=== PATIENT | male | born 1990 | race Two or more races ===

== ENCOUNTER 2018-10-07 19:20 | Inpatient (IN) | payer SELFPAY ==
[~2018-10-07] VITALS: Ht 200.7 cm; Wt 79.7 kg
[2018-10-07 20:28] LABS: HEMATOCRIT 42.6 % (42.0-52.0); HEMOGLOBIN 15.2 g/dl (13.5-17.5); MEAN CORPUSCULAR HEMOGLOBIN 31.1 pg (27.0-33.0); MEAN CORPUSCULAR HGB CONC 35.7 g/dl (32.0-36.5); MEAN CORPUSCULAR VOLUME 87.1 fl (80.0-96.0); PLATELET COUNT, AUTOMATED 225 10^3/uL (150-450); RED BLOOD COUNT 4.89 10^6/uL (4.30-6.10); WHITE BLOOD COUNT 11.2 10^3/uL (4.0-10.0)
[2018-10-07 21:01] LABS: ACETAMINOPHEN LEVEL < 2.0 UG/ML (10.0-30.0); ALBUMIN 4.3 GM/DL (3.2-5.2); ALT/SGPT 30 U/L (12-78); BILIRUBIN,DIRECT 0.3 MG/DL (0.0-0.2); BLOOD UREA NITROGEN 11 MG/DL (7-18); CARBON DIOXIDE LEVEL 24 MEQ/L (21-32); CHLORIDE LEVEL 106 MEQ/L (98-107); CREATININE FOR GFR 0.85 MG/DL (0.70-1.30); ETHYL ALCOHOL (ETHANOL) < 0.003 % (0.000-0.010); GLOMERULAR FILTRATION RATE > 60.0 (>60); GLUCOSE, FASTING 85 MG/DL (70-100); POTASSIUM SERUM 3.9 MEQ/L (3.5-5.1); SALICYLATE LEVEL 3.8 MG/DL (5.0-30.0); SODIUM LEVEL 139 MEQ/L (136-145); TOTAL PROTEIN 7.2 GM/DL (6.4-8.2)
[2018-10-07 22:21] LABS: AMPHETAMINES LEVEL URINE NEGATIVE (NEGATIVE); BARBITURATES URINE NEGATIVE (NEGATIVE); BENZODIAZEPINES URINE NEGATIVE (NEGATIVE); CANNABINOIDS URINE POSITIVE (NEGATIVE); COCAINE METABOLITE URINE NEGATIVE (NEGATIVE); METHADONE URINE NEGATIVE (NEGATIVE); OPIATES URINE NEGATIVE (NEGATIVE); PHENCYCLIDINE URINE NEGATIVE (NEGATIVE)
[2018-10-08] MEDS ORDERED: ABIL1TAB11 PO (07:30)
[2018-10-08] MEDS ORDERED: ACETAMINOPHEN TAB 650MG DOSE (2X325MG) PO PRN (13:15)
[2018-10-08] MEDS ORDERED: MAALOX 30 ML SUSP *UDC PO PRN (13:15)
[2018-10-08] MEDS ORDERED: MOM 30ML SUSPENSION UDC PO PRN (13:15)
[2018-10-08] MEDS ORDERED: traZODone 50 MG TAB PO PRN (13:15)
[2018-10-08 14:07] VITALS: BP 142/95
[2018-10-08 18:00] VITALS: BP 130/83
[2018-10-09 06:43] VITALS: BP 112/70
[2018-10-09 09:44] LABS: HEMATOCRIT 40.1 % (42.0-52.0); HEMOGLOBIN 14.5 g/dl (13.5-17.5); MEAN CORPUSCULAR HEMOGLOBIN 31.3 pg (27.0-33.0); MEAN CORPUSCULAR HGB CONC 36.2 g/dl (32.0-36.5); MEAN CORPUSCULAR VOLUME 86.6 fl (80.0-96.0); PLATELET COUNT, AUTOMATED 220 10^3/uL (150-450); RED BLOOD COUNT 4.63 10^6/uL (4.30-6.10); WHITE BLOOD COUNT 8.3 10^3/uL (4.0-10.0)
--- NOTE | 2018-10-09 10:33 | HPE ---
DATE OF ADMISSION: 10/08/2018 HISTORY OF PRESENT ILLNESS: Please refer to the psychiatric history and evaluation for further details on this admission. This examination and history is intended for medical issues which may need treatment, followup or consultation on this 28-year-old male. PRIMARY CARE PROVIDER: Currently has none. ALLERGIES: No known drug allergies. SOCIAL HISTORY: He is single. ETOH - three to four times a week he drinks four to five shots of alcohol. Smokes one pack of cigarettes a day. Recreational drug use - marijuana very rarely. PAST MEDICAL HISTORY: Negative. PAST SURGICAL HISTORY: Repair right middle finger. HOME MEDICATIONS: Abilify one by mouth daily. FAMILY HISTORY: Noncontributory. LABORATORY STUDIES: CBC: White count 11.3, hemoglobin 33.2, hematocrit 42.6, platelets 225. Electrolytes are normal. BUN 11, creatinine 0.05. Urine was positive cannabinoids. REVIEW OF SYSTEMS: 10-systems review was done and was unremarkable. PHYSICAL EXAMINATION: 28-year-old cooperative male in no acute distress. Vital signs stable. Blood pressure 135/78, pulse 73, respirations 18, temperature 98.1, oxygen saturation 98% on room air. The patient is alert and oriented times three. Pupils equal and reactive to light. Extraocular movements intact. Cornea and sclera clear. Conjunctiva normal. No facial asymmetry. Pharynx, tongue, and gums pink and moist. Tongue is midline. Neck is supple, without lymphadenopathy. No thyromegaly. No goiter. Carotids 2+ without bruits. Chest clear to auscultation, without wheeze or retraction. Heart is regular. Abdomen benign. Bowel sounds positive. /Rectal: Not done. Extremities show equal strength. Full range of motion. no cyanosis, clubbing or edema. Peripheral pulses equal and palpable bilaterally. Skin is warm and dry. IMPRESSION AND PLAN: 1. Psychiatric: Plan per psychiatry. 2. Leukocytosis, asymptomatic, probably secondary to stress. Will repeat CBC in the morning. Will get a EKG. 3. No acute medical issues. edited: 10/11/2017 1431 tkf
--- NOTE | 2018-10-09 12:14 | MHHPEPDOC ---
General Date Of Admission: Oct 08, 2018 Legal Status: 9.39 Chief Complaint "I"m trying to get to [place]." History of Present Illness HISTORY OF THE PRESENT ILLNESS: Patient is a 28 -year-old Afghani, male, with a presumed history of schizophrenia (place on Abilify in [place] hosp 1wk ago;pt stopped) who was brought to ED by PD after pt present to [facility] after coming from [place] due to telling customs he would kill himself and needed to leave the country to find work. Pt appeared psychotic and to be hallucinating. In the ED pt stated he was "sick of people" and wanted to work in [place]. He appeared to be responding to internal stimuli, AH, and reported he had a "magic box" in his stomach. He also reported in the ED due to belief people are following him, putting words in his head and making him say them out loud so 'people' could record his words. Also stated they make him says words from the TV and radio. [facility] [place] [facility] [place] [facility] [place]. He is a [place] citizen with a permanent resident card. He was hospitalized 1 wk ago in [place] and was placed on Abilify that he hasn't taken since d/c. He denied SI/HI in ED. Psychiatric Review of Systems Depression (2 or more weeks): denies Lou (4 or more days of): grandiosity, distractibility, goal-directed activities Psychosis: auditory hallucination, delusions, paranoia, disorganization PTSD: denies Anxiety: situational anxiety, stressor related anxiety Anxiety/ 6 months or more of: restlessness, keyed up, difficulty concentrating Past Psychiatric History Previous Psychiatric Diagnosis: presumed to have paranoid schizophrenia Previous Psychiatric Admissions: [place] hospital 1 wk ago Suicide Attempts: unknown Psychiatric Follow-up: unknown, possibly in [place] Psychiatric medications: Abilify unknown dose, noncompliant Past Medical History Medical Problems none known Head Injury: No Seizures: No Hospitalizations: Yes Surgeries: Yes (rt middle finger repair) Family Medical/Psychiatric HX Medical Problems unable to assess Social History Childhood: unable to assess Abuse/Trauma:unable to assess Current Living Situation: in [place] with mother and brothers Education: unable to assess Employment: most likely unemployed as looking for work in [place] Social Support: family Legal: pending domestic charges Marital: unable to assess Mental Status Examination General Appearance: unkempt, disheveled, ds/not appear stated age (older), hospital scubs/clothing, other (malodorous) Build: average, tall Demeanor: preoccupied, guarded Eye Contact: fair Activity: anxious Behavior: cooperative, other (delusional, asking to leave) Speech: clear, normal volume, reg/rate,rhythm,volume, other (afghani accent) Mood: anxious Mood ok Affect: inappropriate, disorganized Thought Process: tangential, associative, flight of ideas, derailment Thought Content (Delusions): grandiose, bizarre, paranoia, delusions, other ("I have 3 people in my body") Thought Content (Other): preoccupied, guarded, internal-stimuli, appears paranoid Thought Content (Aggressive): none reported Perception (Hallucinations): auditory Perception (Other): none reported Cognition (Impairment of): attention/concentration, ability to abstract Cognition(Intelligence Est.): average Oriented: Awake, Alert, Oriented times three Insight: poor Judgment: Poor Psychosis: Associations, Abstract Thinking, Psychotic Perceptions Diagnoses Paranoid Schizophrenia Assessment Pt guarding, asking to by d/c today b/c he doesn't think he needs to be here b/c there's nothing wrong with him. Pt endorsing AH, having 3 people in his body that he doesn't know who they are, people "from [place], [place]... all after me," receiving messages from the TV "when you go up close the TV gives you answers, you have a question then you go to the TV for answers." Pt states he's been living in [place] with his mothers and brothers but doesn't want them called as doesn't think we need to speak with them b/c he called them last night and told them where he was. States that he'll sign consent for [place] hospital he was at stating "I was the doctor, for 1wk I was there, I was the doctor." Asked him 3 times if he meant he was seeing a doctor due to mild language barrier even though he speaks good Pashto and kept saying "no... I was the doctor." He is delusional, paranoid, psychotic with very poor insight and judgement. Denies SI/HI. Will start invega 3mg bid for psychosis with plan for invega sustenna for compliance prior d/c. Initial Treatment Plan 1. Patient was admitted on a 9.39 status. 2. Complete history was obtained. 3. With patients permission, family will be contacted and database will be expanded. 4. Patients medication regimen will be reviewed and changed accordingly. 5. Patient will be provided with protected environment. 6. Patient will be treated with individual, group, and milieu therapies. 7. Patient will receive supportive psych-education. 8. Discharge planning will commence immediately. 9. Outpatient follow-up treatment will be strongly recommended. 10. The initial treatment plan will focus initially on: * Depression. * Risk for suicide. * Substance abuse. 11. invega 3mg bid for psychosis, zyprexa zydis 10mg q6hr prn psychosis ESTIMATED LENGTH OF STAY: 7-9 DAYS. TIME SPENT COUNSELING AND COORDINATING INITIAL CARE: 60 minutes. Vital Signs Vital Signs Date Time Temp Pulse Resp B/P (MAP) Pulse Ox O2 Delivery O2 Flow Rate FiO2 10/09/18 06:43 97.7 75 16 112/70 (84) 10/08/18 13:50 99 10/08/18 03:26 Room Air Laboratory Data 24H Labs Laboratory Tests 2 10/09/18 09:15: Nucleated Red Blood Cells % (auto) 0.0 CBC/BMP Laboratory Tests 10/09/18 09:15 Red Blood Count 4.63, Mean Corpuscular Volume 86.6, Mean Corpuscular Hemoglobin 31.3, Mean Corpuscular Hemoglobin Concent 36.2, Red Cell Distribution Width 11.2 L Medications Scheduled Aripiprazole (Abilify) Unknown Strength Tab, 1 TAB PO DAILY, (Reported) PT STATES HAS NOT TAKEN IN A WEEK, WAS GIVEN TO HIM AT A HOSPITAL IN [place] Allergies Coded Allergies: No Known Allergies (Unverified , 10/08/18) MAGGIE FORD DO Oct 09, 2018 12:14
[2018-10-09] MEDS ORDERED: PALIPERIDONE 3 MG ER TAB (INVEGA) PO ONE (12:30)
[2018-10-09] MEDS: NICOTINE 21MG/24HR 1 EA TRANSDERMAL TD SCH (14:05)
[2018-10-09 18:44] VITALS: BP 129/84
[2018-10-09] MEDS: PALIPERIDONE 3 MG ER TAB (INVEGA) PO SCH (21:00)
[2018-10-10 06:10] VITALS: BP 119/60
[2018-10-10] MEDS: PALIPERIDONE 3 MG ER TAB (INVEGA) PO SCH ×2 (08:12→20:57)
[2018-10-10] MEDS: NICOTINE 21MG/24HR 1 EA TRANSDERMAL TD SCH (08:13)
--- NOTE | 2018-10-10 09:21 | MHIPNPDOC ---
[facility] Progress Note Progress Note DATE OF SERVICE: 10/10/18 HISTORY: Patient is a 28 -year-old Afani, male, with a presumed history of schizophrenia (place on Abilify in [place] hosp 1wk ago;pt stopped) who was brought to ED by PD after pt present to [facility] after coming from [place] due to telling customs he would kill himself and needed to leave the country to find work. Pt appeared psychotic and to be hallucinating. In the ED pt stated he was "sick of people" and wanted to work in [place]. He appeared to be responding to internal stimuli, AH, and reported he had a "magic box" in his stomach. He also reported in the ED due to belief people are following him, putting words in his head and making him say them out loud so 'people' could record his words. Also stated they make him says words from the TV and radio. Per ED, pt stopped at [facility] due to having pending domestic charges. [facility] with a permanent resident card. He was hospitalized 1 wk ago in [place] and was placed on Abilify that he hasn't taken since d/c. He denied SI/HI in ED. VITAL SIGNS: See below. NEW TEST RESULTS: See below. CURRENT MEDICATIONS: See below. MENTAL STATUS EXAMINATION: General Appearance: unkempt, disheveled, ds/not appear stated age (older), hospital scrubs/clothing, other (malodorous) Build: average, tall Demeanor: preoccupied, guarded Eye Contact: fair Activity: anxious Behavior: cooperative, other (delusional, asking to leave) Speech: clear, normal volume, reg/rate,rhythm,volume, other ([facility] accent) Mood: anxious Mood ok Affect: inappropriate, disorganized Thought Process: tangential, associative, flight of ideas, derailment Thought Content (Delusions): grandiose, bizarre, paranoia, delusions, other ("people chasing me with a magic box... 3 people inside me") Thought Content (Other): preoccupied, guarded, internal-stimuli, appears paranoid Thought Content (Aggressive): none reported Perception (Hallucinations): auditory Perception (Other): none reported Cognition (Impairment of): attention/concentration, ability to abstract Cognition(Intelligence Est.): average Oriented: Awake, Alert, Oriented times three Insight: poor Judgment: Poor Psychosis: Associations, Abstract Thinking, Psychotic Perceptions DIAGNOSES: 1. Paranoid Schizophrenia ASSESSMENT:Pt seen asking to leave. States he took his medication 2 times yesterday which is as directed but he thought it was a lot. States he recieved a monthly shot a long time ago that was beneficial but can't remember what it was. He is still delusional, paranoid, having thought insertion, appears to be responding to internal stimuli although cooperative with care. States ""people chasing me with a magic box... 3 people inside me" when asked about magic box and the 3 people inside him. Has no insight into his current delusional/paranoid thoughts. Pt agreeable to signing consents for family and previous hospital in [place]. He is delusional, paranoid, psychotic with very poor insight and judgement. Denies SI/HI. Feels safe here. MANAGEMENT PLAN: get records from previous hospital in [place] and speak with family for collateral info. Medications: invega 3mg bid for psychosis zyprexa zydis 10mg q6hr prn psychosis TIME SPENT: 30 minutes. Vital Signs Vital Signs Date Time Temp Pulse Resp B/P (MAP) Pulse Ox O2 Delivery O2 Flow Rate FiO2 10/10/18 06:10 97.0 114 18 119/60 (79) 10/08/18 13:50 99 10/08/18 03:26 Room Air Laboratory Data 24H Labs Laboratory Tests 2 10/09/18 09:15: Nucleated Red Blood Cells % (auto) 0.0 CBC/BMP Laboratory Tests 10/09/18 09:15 Red Blood Count 4.63, Mean Corpuscular Volume 86.6, Mean Corpuscular Hemoglobin 31.3, Mean Corpuscular Hemoglobin Concent 36.2, Red Cell Distribution Width 11.2 L Current Medications Current Medications Acetaminophen (Tylenol Tab) 650 mg Q6HP PRN PO HEADACHE or DISCOMFORT; Start 10/08/18 at 13:15 Al Hydrox/Mg Hydrox/Simethicone (Mylanta) 30 ml Q4HP PRN PO HEARTBURN/INDIGESTION; Start 10/08/18 at 13:15 Home Med (Med Rec Complete!) ASDIRECTED XX ; Start 10/08/18 at 07:45; Stop 10/08/18 at 07:45; Status DC Magnesium Hydroxide (Milk Of Magnesia) 30 ml DAILYPRN PRN PO CONSTIPATION; Start 10/08/18 at 13:15 Nicotine (Nicoderm Cq 21mg) 1 patch DAILY TD Last administered on 10/09/18at 14:05; Start 10/09/18 at 09:00 Olanzapine (ZyPREXA ZYDIS) 5 mg Q4HP PRN PO AGITATION; Start 10/08/18 at 13:15 Paliperidone (Invega) 3 mg QAM PO Last administered on 10/10/18at 08:12; Start 10/10/18 at 09:00 Paliperidone (Invega) 3 mg QHS PO ; Start 10/09/18 at 21:00 Trazodone HCl (Desyrel) 50 mg QHSP PRN PO INSOMNIA; Start 10/08/18 at 13:15 Allergies Coded Allergies: No Known Allergies (Unverified , 10/08/18) MAGGIE FORD DO Oct 10, 2018 9:21 am
--- NOTE | 2018-10-10 10:20 | ECGEPIP ---
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
[2018-10-10 18:00] VITALS: BP 140/78
[2018-10-11 06:00] VITALS: BP 142/70
[2018-10-11] MEDS: PALIPERIDONE 3 MG ER TAB (INVEGA) PO SCH (08:34)
[2018-10-11] MEDS: NICOTINE 21MG/24HR 1 EA TRANSDERMAL TD SCH ×2 (08:35→12:27)
--- NOTE | 2018-10-11 09:42 | MHIPNPDOC ---
[facility] Progress Note Progress Note DATE OF SERVICE: 10/11/18 HISTORY: Patient is a 28 -year-old Afani, male, with a presumed history of schizophrenia (place [place] Abilify in [place] hosp 1wk ago;pt stopped) who was brought to ED by PD after pt present to [facility] [place] coming [place] due to telling customs he would kill himself and needed to leave the country to find work. Pt appeared psychotic and to be hallucinating. In the ED pt stated he was "sick of people" and wanted to work in [place]. He appeared to be responding to internal stimuli, AH, and reported he had a "magic box" in his stomach. He also reported in the ED due to belief people are following him, putting words in his head and making him say them out loud so 'people' could record his words. Also stated they make him says words from the TV and radio. Per ED, pt stopped at [facility] due to having pending domestic charges. [facility]. [place] and was placed on Abilify that he hasn't taken since d/c. He denied SI/HI in ED. VITAL SIGNS: See below. NEW TEST RESULTS: See below. CURRENT MEDICATIONS: See below. MENTAL STATUS EXAMINATION: General Appearance: unkempt, disheveled, ds/not appear stated age (older), hospital scrubs/clothing, other (malodorous) Build: average, tall Demeanor: preoccupied, guarded Eye Contact: fair Activity: anxious Behavior: cooperative, other (delusional, asking to leave) Speech: clear, normal volume, reg/rate,rhythm,volume, other ([facility] accent) Mood: anxious Mood ok Affect: inappropriate, disorganized Thought Process: tangential, associative, flight of ideas, derailment Thought Content (Delusions): grandiose, bizarre, paranoia, delusions, other ("there's a ghost or evil speaking to me saying "yes... no... do this... don't do that", scared to be in single room b/c hears ghost more often) Thought Content (Other): preoccupied, guarded, internal-stimuli (as stated above, appears paranoid) Thought Content (Aggressive): none reported Perception (Hallucinations): auditory (as stated above, appears paranoid) Perception (Other): none reported Cognition (Impairment of): attention/concentration, ability to abstract Cognition(Intelligence Est.): average Oriented: Awake, Alert, Oriented times three Insight: poor Judgment: Poor Psychosis: Associations, Abstract Thinking, Psychotic Perceptions DIAGNOSES: 1. Paranoid Schizophrenia ASSESSMENT:Pt seen asking to leave. Per staff is compliant on medication. Per treatment team pt uneligible for any type of medical insurance so therefore unlikely to be able to afford invega or invega sustenna so will d/c and start haldol oral with plan for haldol dec prior d/c for psychosis and med compliance. Pt seen today stating that "there's a ghost or evil speaking to me saying "yes... no... do this... don't do that", scared to be in single room b/c hears ghost more often). Will change room to a double. He is still delusional, paranoid, having thought insertion, appears to be responding to internal stimuli although cooperative with care. Has no insight into his current delusional/paranoid thoughts. Pt agreeable to signing consents for family and previous hospital [place]. He is delusional, paranoid, psychotic with very poor insight and judgement. Denies SI/HI. Feels safe here. MANAGEMENT PLAN: get records from previous hospital in [place] and speak with family for collateral info. Change invega to haldol with plan for haldol dec prior d/c for compliance as pt lacks insurance due to be [place] citizen. change room to double to lessen AH at night. Medications: Haldol 10mg tid for psychosis zyprexa zydis 10mg q6hr prn psychosis TIME SPENT: 30 minutes. Vital Signs Vital Signs Date Time Temp Pulse Resp B/P (MAP) Pulse Ox O2 Delivery O2 Flow Rate FiO2 10/11/18 06:00 97.1 81 16 142/70 (94) 10/08/18 13:50 99 10/08/18 03:26 Room Air Current Medications Current Medications Acetaminophen (Tylenol Tab) 650 mg Q6HP PRN PO HEADACHE or DISCOMFORT; Start 10/08/18 at 13:15 Al Hydrox/Mg Hydrox/Simethicone (Mylanta) 30 ml Q4HP PRN PO HEARTBURN/INDIGESTION; Start 10/08/18 at 13:15 Home Med (Med Rec Complete!) ASDIRECTED XX ; Start 10/08/18 at 07:45; Stop 10/08/18 at 07:45; Status DC Magnesium Hydroxide (Milk Of Magnesia) 30 ml DAILYPRN PRN PO CONSTIPATION; Start 10/08/18 at 13:15 Nicotine (Nicoderm Cq 21mg) 1 patch DAILY TD Last administered on 10/09/18at 14:05; Start 10/09/18 at 09:00 Olanzapine (ZyPREXA ZYDIS) 5 mg Q4HP PRN PO AGITATION; Start 10/08/18 at 13:15 Paliperidone (Invega) 3 mg QAM PO Last administered on 10/11/18at 08:34; Start 10/10/18 at 09:00 Paliperidone (Invega) 3 mg QHS PO Last administered on 10/10/18at 20:57; Start 10/09/18 at 21:00 Trazodone HCl (Desyrel) 50 mg QHSP PRN PO INSOMNIA; Start 10/08/18 at 13:15 Allergies Coded Allergies: No Known Allergies (Unverified , 10/08/18) MAGGIE FORD DO Oct 11, 2018 9:42 am
[2018-10-11] MEDS ORDERED: HALOPERIDOL 10 MG TAB PO ONE (09:45)
[2018-10-11] MEDS: HALOPERIDOL 10 MG TAB PO SCH ×3 (16:00→21:03)
[2018-10-11 18:07] VITALS: BP 126/82
[2018-10-11] MEDS ORDERED: HALOPERIDOL 10 MG TAB PO SCH (21:00)
[2018-10-12] MEDS: HALOPERIDOL 10 MG TAB PO SCH ×3 (08:46→21:59)
[2018-10-12] MEDS: NICOTINE 21MG/24HR 1 EA TRANSDERMAL TD SCH (09:00)
[2018-10-12 10:08] VITALS: BP 145/87
--- NOTE | 2018-10-12 10:27 | MHIPNPDOC ---
[facility] Progress Note Progress Note DATE OF SERVICE: 10/12/18 HISTORY: Patient is a 28 -year-old Af[place], male, with a presumed history of schizophrenia (place on Abilify in [place] hosp 1wk ago;pt stopped) who was brought to ED by PD after pt present to [facility] after coming from [place] due to telling customs he would kill himself and needed to leave the country to find work. Pt appeared psychotic and to be hallucinating. In the ED pt stated he was "sick of people" and wanted to work in [place]. He appeared to be responding to internal stimuli, AH, and reported he had a "magic box" in his stomach. He also reported in the ED due to belief people are following him, putting words in his head and making him say them out loud so 'people' could record his words. Also stated they make him says words from the TV and radio. Per ED, pt stopped at [facility] due to having pending domestic charges. [facility]. He was hospitalized 1 wk ago in [place] and was placed on Abilify that he hasn't taken since d/c. He denied SI/HI in ED. VITAL SIGNS: See below. NEW TEST RESULTS: See below. CURRENT MEDICATIONS: See below. MENTAL STATUS EXAMINATION: General Appearance: unkempt, disheveled, ds/not appear stated age (older), hospital scrubs/clothing, other (malodorous) Build: average, tall Demeanor: preoccupied, guarded Eye Contact: fair Activity: anxious Behavior: cooperative, other (delusional, asking to leave) Speech: clear, normal volume, reg/rate,rhythm,volume, other ([facility] accent) Mood: anxious Mood ok Affect: inappropriate, disorganized Thought Process: tangential, associative, flight of ideas, derailment Thought Content (Delusions): grandiose, bizarre, paranoia, delusions, other ("there's a ghost or evil speaking to me saying "yes... no... do this... don't do that", scared to be in single room b/c hears ghost more often) Thought Content (Other): preoccupied, guarded, internal-stimuli (as stated above, appears paranoid) Thought Content (Aggressive): none reported Perception (Hallucinations): auditory (as stated above, appears paranoid) Perception (Other): none reported Cognition (Impairment of): attention/concentration, ability to abstract Cognition(Intelligence Est.): average Oriented: Awake, Alert, Oriented times three Insight: poor Judgment: Poor Psychosis: Associations, Abstract Thinking, Psychotic Perceptions DIAGNOSES: 1. Paranoid Schizophrenia ASSESSMENT:Pt seen asking to leave. Per staff is compliant on medication. On haldol oral with plan for haldol dec prior d/c for psychosis and med compliance as lacks med insurance. Pt states he's been hospitalized 15 times for 15-16 d ays in the last 4yrs so therefore doesn't need to be here as he's fine. He continues to pace the soto and appears to be responding to internal stimuli that he denies. Pt to experience what he stated yesterday "there's a ghost or evil speaking to me saying "yes... no... do this... don't do that." Pt not attending groups due to paranoia and AH as states he doesn't like to be around a lot of people. He is still delusional, paranoid, having thought insertion, appears to be responding to internal stimuli although cooperative with care. Has no insight into his current delusional/paranoid thoughts. Pt agreeable to signing consents for family and previous hospital in [place]. He is delusional, paranoid, psychotic with very poor insight and judgement. Denies SI/HI. Am get iPad contract consultant for pt as primary language is Farsi. Feels safe here. MANAGEMENT PLAN: get records from previous hospital in [place] and speak with family for collateral info. iPad contract consultant for [facility] Medications: Haldol 10mg tid for psychosis zyprexa zydis 10mg q6hr prn psychosis TIME SPENT: 30 minutes. Vital Signs Vital Signs Date Time Temp Pulse Resp B/P (MAP) Pulse Ox O2 Delivery O2 Flow Rate FiO2 10/12/18 10:08 97.6 95 16 145/87 (106) 10/08/18 13:50 99 10/08/18 03:26 Room Air Current Medications Current Medications Acetaminophen (Tylenol Tab) 650 mg Q6HP PRN PO HEADACHE or DISCOMFORT; Start 10/08/18 at 13:15 Al Hydrox/Mg Hydrox/Simethicone (Mylanta) 30 ml Q4HP PRN PO HEARTBURN/INDIGESTION; Start 10/08/18 at 13:15 Haloperidol (Haldol) 10 mg BID PO ; Start 10/11/18 at 21:00; Status UNV Haloperidol (Haldol) 10 mg TID PO Last administered on 10/12/18at 08:46; Start 10/11/18 at 16:00 Home Med (Med Rec Complete!) ASDIRECTED XX ; Start 10/08/18 at 07:45; Stop 10/08/18 at 07:45; Status DC Magnesium Hydroxide (Milk Of Magnesia) 30 ml DAILYPRN PRN PO CONSTIPATION; Start 10/08/18 at 13:15 Nicotine (Nicoderm Cq 21mg) 1 patch DAILY TD Last administered on 10/11/18at 12:27; Start 10/09/18 at 09:00 Olanzapine (ZyPREXA ZYDIS) 5 mg Q4HP PRN PO AGITATION; Start 10/08/18 at 13:15 Paliperidone (Invega) 3 mg QAM PO Last administered on 10/11/18at 08:34; Start 10/10/18 at 09:00; Stop 10/11/18 at 09:12; Status DC Paliperidone (Invega) 3 mg QHS PO Last administered on 10/10/18at 20:57; Start 10/09/18 at 21:00; Stop 10/11/18 at 09:12; Status DC Trazodone HCl (Desyrel) 50 mg QHSP PRN PO INSOMNIA; Start 10/08/18 at 13:15; Stop 10/11/18 at 09:38; Status DC Allergies Coded Allergies: No Known Allergies (Unverified , 10/08/18) MAGGIE FORD DO Oct 12, 2018 10:27 am
[2018-10-12] MEDS: OLANZapine ORAL DISINTEGRATING TAB 5MG PO PRN ×2 (12:59→22:25)
[2018-10-12 18:00] VITALS: BP 128/74
[2018-10-13 06:47] VITALS: BP 125/71
[2018-10-13] MEDS: HALOPERIDOL 10 MG TAB PO SCH ×3 (08:04→20:19)
[2018-10-13] MEDS: NICOTINE 21MG/24HR 1 EA TRANSDERMAL TD SCH (08:04)
--- NOTE | 2018-10-13 10:59 | MHIPNPDOC ---
[facility] Progress Note Progress Note DATE OF SERVICE: 10/13/18 HISTORY: Patient is a 28 -year-old Af[place], male, with a presumed history of schizophrenia (place on Abilify in [place] hosp 1wk ago;pt stopped) who was brought t o ED by PD after pt present to [facility] after coming from [place] due to telling customs he would kill himself and needed to leave the country to find work. Pt appeared psychotic and to be hallucinating. In the ED pt stated he was "sick of people" and wanted to work in [place]. He appeared to be responding to internal stimuli, AH, and reported he had a "magic box" in his stomach. He also reported in the ED due to belief people are following him, putting words in his head and making him say them out loud so 'people' could record his words. Also stated they make him says words from the TV and radio. Per ED, [place] border [place] domestic charges. He is a [place] [place] citizen with a permanent resident card. He was hospitalized 1 wk ago in [place] and was placed on Abilify that he hasn't taken since d/c. He denied SI/HI in ED. VITAL SIGNS: See below. NEW TEST RESULTS: See below. CURRENT MEDICATIONS: See below. MENTAL STATUS EXAMINATION: General Appearance: unkempt, disheveled, ds/not appear stated age (older), hospital scrubs/clothing, other (malodorous) Build: average, tall Demeanor: preoccupied, guarded Eye Contact: fair Activity: anxious Behavior: cooperative, other (delusional, asking to leave) Speech: clear, normal volume, reg/rate,rhythm,volume, other (formerly [facility] accent) Mood: anxious Mood ok Affect: inappropriate, disorganized Thought Process: tangential, associative, flight of ideas, derailment Thought Content (Delusions): grandiose, bizarre, paranoia, delusions, other ("t here's a ghost or evil speaking to me saying "yes... no... do this... don't do that", scared to be in single room b/c hears ghost more often) Thought Content (Other): preoccupied, guarded, internal-stimuli (as stated above, appears paranoid) Thought Content (Aggressive): none reported Perception (Hallucinations): auditory (as stated above, appears paranoid) Perception (Other): none reported Cognition (Impairment of): attention/concentration, ability to abstract Cognition(Intelligence Est.): average Oriented: Awake, Alert, Oriented times three Insight: poor Judgment: Poor Psychosis: Associations, Abstract Thinking, Psychotic Perceptions DIAGNOSES: 1. Paranoid Schizophrenia ASSESSMENT:Per d/c space planner, spoke with pt's mother who states pt sounds better when she speaks to him on the phone and was on a monthly shot a long time ago and doing well until he stopped taking it. Per pt's mother, they will not pick pt up so he must drive home to [place] on his own [place] border. Pt seen asking to leave. Per staff is compliant on medication. On haldol oral with plan for haldol dec prior d/c for psychosis and med compliance as lacks med insurance. Pt states he's tolerating his meds well and thinks they're help. He appears to have improved response to Ah. He continues to pace the soto occasionally. States "yesterday I had pressure behind my eyes and the evil spirits left thru my eyes." When speaking he speaks of "us" rather than "I" regarding questions about himself. Pt not attending groups due to p aranoia and AH as states he doesn't like to be around a lot of people. He is still delusional, paranoid, having thought insertion, appears to be responding to internal stimuli although cooperative with care. Has no insight into his current delusional/paranoid thoughts. He is showing minor improved delusional, paranoid, psychotic with very poor insight and judgement. Denies SI/HI. Feels safe here. MANAGEMENT PLAN: get records from previous hospital in [place] and speak with family for collateral info. 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 Vital Signs Vital Signs Date Time Temp Pulse Resp B/P (MAP) Pulse Ox O2 Delivery O2 Flow Rate FiO2 10/13/18 06:47 97.2 83 12 125/71 (89) 10/08/18 13:50 99 10/08/18 03:26 Room Air Current Medications Current Medications Acetaminophen (Tylenol Tab) 650 mg Q6HP PRN PO HEADACHE or DISCOMFORT; Start 10/08/18 at 13:15 Al Hydrox/Mg Hydrox/Simethicone (Mylanta) 30 ml Q4HP PRN PO HEARTBURN/INDIGESTION; Start 10/08/18 at 13:15 Haloperidol (Haldol) 10 mg BID PO ; Start 10/11/18 at 21:00; Status UNV Haloperidol (Haldol) 10 mg TID PO Last administered on 10/13/18at 08:04; Start 10/11/18 at 16:00 Home Med (Med Rec Complete!) ASDIRECTED XX ; Start 10/08/18 at 07:45; Stop 10/08/18 at 07:45; Status DC Magnesium Hydroxide (Milk Of Magnesia) 30 ml DAILYPRN PRN PO CONSTIPATION; Start 10/08/18 at 13:15 Nicotine (Nicoderm Cq 21mg) 1 patch DAILY TD Last administered on 10/11/18at 12:27; Start 10/09/18 at 09:00 Olanzapine (ZyPREXA ZYDIS) 5 mg Q4HP PRN PO AGITATION Last administered on 10/12/18at 22:25; Start 10/08/18 at 13:15 Paliperidone (Invega) 3 mg QAM PO Last administered on 10/11/18at 08:34; Start 10/10/18 at 09:00; Stop 10/11/18 at 09:12; Status DC Paliperidone (Invega) 3 mg QHS PO Last administered on 10/10/18at 20:57; Start 10/09/18 at 21:00; Stop 10/11/18 at 09:12; Status DC Trazodone HCl (Desyrel) 50 mg QHSP PRN PO INSOMNIA; Start 10/08/18 at 13:15; Stop 10/11/18 at 09:38; Status DC Allergies Coded Allergies: No Known Allergies (Unverified , 10/08/18) MAGGIE FORD DO Oct 13, 2018 10:59 am
[2018-10-13 18:42] VITALS: BP 117/69
[2018-10-13] MEDS ORDERED: traZODone 50 MG TAB PO PRN (21:30)
[2018-10-14 06:25] VITALS: BP 113/56
[2018-10-14] MEDS: HALOPERIDOL 10 MG TAB PO SCH ×3 (08:16→21:03)
[2018-10-14] MEDS: NICOTINE 21MG/24HR 1 EA TRANSDERMAL TD SCH (09:00)
[2018-10-14] MEDS: OLANZapine ORAL DISINTEGRATING TAB 5MG PO PRN ×2 (11:14→22:39)
[2018-10-14] MEDS: NICOTINE POLACRILEX 2 MG GUM PO PRN ×4 (12:09→21:21)
[2018-10-14 18:00] VITALS: BP 121/73
[2018-10-15 06:08] VITALS: BP 129/64
[2018-10-15] MEDS: NICOTINE POLACRILEX 2 MG GUM PO PRN ×4 (09:02→21:22)
[2018-10-15] MEDS: HALOPERIDOL 10 MG TAB PO SCH ×3 (09:02→21:22)
[2018-10-15] MEDS ORDERED: HALOPERIDOL DECANOATE 100 MG/ML VIAL (J1631) IM ONE (11:15)
--- NOTE | 2018-10-15 11:20 | MHIPNPDOC ---
[facility] Progress Note Progress Note DATE OF SERVICE: 10/15/18 HISTORY: Patient is a 28 -year-old Af[place], male, with a presumed history of schizophrenia (place on Abilify in [place] hosp 1wk ago;pt stopped) who was brought to ED by PD after pt present to [facility] after coming from [place] due to telling customs he would kill himself and needed to leave the country to find work. Pt appeared psychotic and to be hallucinating. In the ED pt stated he was "sick of people" and wanted to work in [place]. He appeared to be responding to internal stimuli, AH, and reported he had a "magic box" in his stomach. He also reported in the ED due to belief people are following him, putting words in his head and making him say them out loud so 'people' could record his words. Also stated they make him says words from the TV and radio. Per ED, pt stopped at [facility] due to having pending domestic charges. [place] a [place] resident card. He was hospitalized 1 wk ago in [place] and was placed on Abilify that he hasn't taken since d/c. He denied SI/HI in ED. VITAL SIGNS: See below. NEW TEST RESULTS: See below. CURRENT MEDICATIONS: See below. MENTAL STATUS EXAMINATION: General Appearance: clean, ds/not appear stated age (older), hospital scrubs/clothing Build: average, tall Demeanor: cooperative, calm Eye Contact: fair Activity: calm, no longer pacing halls all day Behavior: cooperative Speech: clear, normal volume, reg/rate,rhythm,volume, other (formerly [facility] accent) Mood: calm, flat Mood ok Affect: appropriate, flat Thought Process: improved tangential, associative, flight of ideas, derailment Thought Content (Delusions): improved grandiose, bizarre, paranoia, delusions, other Thought Content (Other): improved preoccupied, guarded, internal-stimuli Thought Content (Aggressive): none reported Perception (Hallucinations): improved auditory Perception (Other): none reported Cognition (Impairment of): attention/concentration, ability to abstract Cognition(Intelligence Est.): average Oriented: Awake, Alert, Oriented times three Insight: limited Judgment: limited Psychosis: Associations, Abstract Thinking, Psychotic Perceptions DIAGNOSES: 1. Paranoid Schizophrenia ASSESSMENT:Yesterday pt became agitated kicking over a fan in the soto, yelling and hitting the castro due to not being discharged. Pt did not need to be coded as he calmed down with redirection and possibly knowledge on Thursday d/c after haldol decanoate given today which he agrees too. Pt seen asking and states he's ok and appears calm. Per staff is compliant on medication. On haldol oral with plan for haldol dec prior d/c for psychosis and med compliance as lacks med insurance today. Pt states he's tolerating his meds well and thinks they're help. He appears to have improved psychosis and AH and is able to think more linear and logcial. He no longer paces the halls all day. He does speak with his peers in the milieu. He shows improved delusional, paranoid, having thought insertion, appears to be responding to internal stimuli although cooperative with care. Has some insight into his current delusional/paranoid thoughts. Denies SI/HI. Feels safe here. MANAGEMENT PLAN: get records from previous hospital in [place] and speak with family for collateral info. 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 Haldol decanoate for compliance today. Medications: Haldol decanoate 100mg im today Haldol 10mg tid for psychosis zyprexa zydis 10mg q6hr prn psychosis TIME SPENT: 30 minutes. Vital Signs Vital Signs Date Time Temp Pulse Resp B/P (MAP) Pulse Ox O2 Delivery O2 Flow Rate FiO2 10/15/18 06:08 98.5 70 18 129/64 (85) Current Medications Current Medications Acetaminophen (Tylenol Tab) 650 mg Q6HP PRN PO HEADACHE or DISCOMFORT; Start 10/08/18 at 13:15 Al Hydrox/Mg Hydrox/Simethicone (Mylanta) 30 ml Q4HP PRN PO HEARTBURN/INDIGESTION; Start 10/08/18 at 13:15 Haloperidol (Haldol) 10 mg BID PO ; Start 10/11/18 at 21:00; Status UNV Haloperidol (Haldol) 10 mg TID PO Last administered on 10/15/18at 09:02; Start 10/11/18 at 16:00 Home Med (Med Rec Complete!) ASDIRECTED XX ; Start 10/08/18 at 07:45; Stop 10/08/18 at 07:45; Status DC Magnesium Hydroxide (Milk Of Magnesia) 30 ml DAILYPRN PRN PO CONSTIPATION; Start 10/08/18 at 13:15 Nicotine (Nicoderm Cq 21mg) 1 patch DAILY TD Last administered on 10/11/18at 12:27; Start 10/09/18 at 09:00; Stop 10/14/18 at 11:37; Status DC Nicotine (Nicorette) 2 mg Q2HP PRN PO NICOTINE WITHDRAWAL Last administered on 10/15/18at 09:02; Start 10/14/18 at 11:45 Olanzapine (ZyPREXA ZYDIS) 5 mg Q4HP PRN PO AGITATION Last administered on 10/14/18at 22:39; Start 10/08/18 at 13:15 Paliperidone (Invega) 3 mg QAM PO Last administered on 10/11/18at 08:34; Start 10/10/18 at 09:00; Stop 10/11/18 at 09:12; Status DC Paliperidone (Invega) 3 mg QHS PO Last administered on 10/10/18at 20:57; Start 10/09/18 at 21:00; Stop 10/11/18 at 09:12; Status DC Trazodone HCl (Desyrel) 50 mg QHSP PRN PO INSOMNIA; Start 10/08/18 at 13:15; Stop 10/11/18 at 09:38; Status DC Trazodone HCl (Desyrel) 50 mg QHSP PRN PO INSOMNIA Last administered on 10/13/18at 21:46; Start 10/13/18 at 21:30; Stop 10/14/18 at 02:05; Status DC Allergies Coded Allergies: No Known Allergies (Unverified , 10/08/18) MAGGIE FORD DO Oct 15, 2018 11:20 am
[2018-10-15] MEDS: OLANZapine ORAL DISINTEGRATING TAB 5MG PO PRN ×2 (14:04→23:04)
[2018-10-15 18:00] VITALS: BP 116/61
[2018-10-16 06:00] VITALS: BP 133/73
[2018-10-16] MEDS: HALOPERIDOL 10 MG TAB PO SCH ×3 (08:06→20:48)
[2018-10-16] MEDS: NICOTINE POLACRILEX 2 MG GUM PO PRN ×2 (14:41→17:52)
[2018-10-16 18:08] VITALS: BP 134/61
[2018-10-16] MEDS: OLANZapine ORAL DISINTEGRATING TAB 5MG PO PRN (20:48)
[2018-10-17 06:30] VITALS: BP 128/72
[2018-10-17] MEDS: HALOPERIDOL 10 MG TAB PO SCH ×3 (08:03→21:01)
[2018-10-17] MEDS: NICOTINE POLACRILEX 2 MG GUM PO PRN ×3 (09:02→17:51)
[2018-10-17 18:05] VITALS: BP 132/60
[2018-10-17] MEDS: OLANZapine ORAL DISINTEGRATING TAB 5MG PO PRN (21:46)
[2018-10-17] MEDS ORDERED: QUEtiapine FUMARATE 25 MG TAB PO ONE (22:15)
[2018-10-18 06:00] VITALS: BP 126/71
[2018-10-18] MEDS: HALOPERIDOL 10 MG TAB PO SCH (08:03)
--- NOTE | 2018-10-18 09:52 | MHDSPDOC ---
[facility] Discharge Summary Discharge Summary DATE OF ADMISSION: Oct 08, 2018 at 1:02 pm DATE OF DISCHARGE: Sep 20, 2018 DISCHARGE DIAGNOSES: 1. Paranoid Schizophrenia REASON FOR ADMISSION: Patient is a 28 -year-old Afghani, male, with a presumed history of schizophrenia (place on Abilify in [place] hosp 1wk ago;pt stopped) who was brought to ED by PD after pt present to [facility] after coming from [place] due to telling customs he would kill himself and needed to leave the country to find work. Pt appeared psychotic and to be hallucinating. In the ED pt stated he was "sick of people" and wanted to work in [place]. He appeared to be responding to internal stimuli, AH, and reported he had a "magic box" in his stomach. He also reported in the ED due to belief people are following him, putting words in his head and making him say them out loud so 'people' could record his words. Also stated they make him says words from the TV and radio. Per ED, pt stopped at [facility] due to having pending domestic charges. [facility] [place] [place] [facility] [place] with a permanent resident card. He was hospitalized 1 wk ago in [place] and was placed on Abilify that he hasn't taken since d/c. He denied SI/HI in ED. CONSULTANTS INVOLVED: none TREATMENT AND PROGRESS ON THE UNIT : Pt was admitted to [facility], seen for psychiatric assessment and haldol 10mg tid that he tolerated well so therefore received haldol decanoate 100mg im for med compliance. He was cooperative and compliant on his medications during his stay. He was provided trazodone 50mg qhs prn insomnia. Pt found his medications beneficial and tolerated them well. He socialized with his peers daily during his stay. His family was contacted in [place] and are very supportive. His symptoms improved with treatment. On day of discharge he denied depression, anxiety, insomnia, SI/HI, hallucinations. He had baseline paranoid delusions that he did have fair insight into and per pts family were baseline for the pt. He was discharged home home to [place] where his family lives with follow-up in [place]. Family will be aiding pt with making it to his appt's and staying compliant on his medication.. He felt safe for discharge. DISCHARGE ASSESSMENT: Pt calm and cooperative all weekend. Pt seen today and states he's doing good, [place] with plan to drive home to [place] where he lives with his family who is very supportive. States he's ok and appears calm. Per staff is compliant on medication. Pt states he's tolerating his meds well and thinks they're helpful. He appears to have improved psychosis and denies AH which baseline per family for the pt. He is able to think more linear and logical. He no longer paces the halls all day. He does speak with his peers in the milieu. He shows greatly improved delusional, paranoid thought that is baseline for the pt per his family. Has fair to good insight into his thoughts and his judgement appears good. Denies depression, anxiety, insomnia, SI/HI, hallucinations. Baseline paranoid delusions pt has fair insight into. Feels safe to be discharged home. MENTAL STATUS EXAMINATION ON DISCHARGE: General Appearance: clean, ds/not appear stated age (older), hospital scrubs/clothing Build: average, tall Demeanor: cooperative, calm Eye Contact: good Activity: calm Behavior: cooperative Speech: clear, normal volume, reg/rate,rhythm,volume, other ([place] accent) Mood: calm, euthymic Mood "good" Affect: appropriate, euthymic Thought Process: improved to more linear and logical Thought Content (Delusions): improved paranoid delusions to baseline per family Thought Content (Other): doesn't appear to be responding to internal stimuli Thought Content (Aggressive): none reported Perception (Hallucinations): denies Perception (Other): none reported Cognition (Impairment of): improved attention/concentration, ability to abstract to baseline Cognition(Intelligence Est.): average Oriented: Awake, Alert, Oriented times three Insight: fair-good Judgment: fair to good Psychosis: none reported, baseline paranoid delusions MEDICATIONS ON DISCHARGE: Haldol decanoate 100mg im qmonth (next dose to be prescribed by outpatient psychiatrist in [place] as I don't have a [place] med license) PLAN/FOLLOWUP ARRANGEMENTS: D/c home to [place] where his family lives with follow-up in [place]. Family will be aiding pt with making it to his appt's and staying compliant on his medication. The amount of time spent in the coordination of care for this patient was approximately 30 minutes. Vital Signs/I&Os Vital Signs Date Time Temp Pulse Resp B/P (MAP) Pulse Ox O2 Delivery O2 Flow Rate FiO2 10/18/18 06:00 98.6 68 18 126/71 (89) 99 Medications No Active Prescriptions or Reported Meds Allergies Coded Allergies: No Known Allergies (Unverified , 10/08/18) MAGGIE FORD DO Oct 18, 2018 9:52 am
== END 2018-10-18 12:00 | disposition home or self-care (01) | DRG 750 ==
LOC: M ED 19:20 → M ED INP 10-08 13:02 → M PSY 10-08 14:02
PROVIDERS: ADMIT Psychiatry & Neurology Psychiatry; ATTEND Psychiatry & Neurology Psychiatry
DX: F20.0 Paranoid schizophrenia (principal); F17.210 Nicotine dependence, cigarettes, uncomplicated